=== PATIENT | female | born 2005 | race Caucasian/White ===

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

== ENCOUNTER → 2023-11-30 | Outpatient (CLI) | payer OTHER ==
[~2023-11-30] MED LIST: CARA1TAB6 PO; DICY-61 PO; OMEP-173 PO; OMEP1CAP73 PO; ONDA-282 PO
== END ==
LOC: M RAD 11:11
PROVIDERS: ATTEND Physician Assistant Medical
DX: M25.475 Effusion, left foot (principal); R93.6 Abnormal findings on diagnostic imaging of limbs

== ENCOUNTER → 2023-12-26 | Outpatient (CLI) | payer OTHER ==
[~2023-12-26] MED LIST changes: +PROHANCE 279.3MG/ML 15ML VIAL ONE
== END ==
LOC: M PLAIMG 12:48
PROVIDERS: ATTEND Physician Assistant Medical
DX: M67.472 Ganglion, left ankle and foot (principal)

== ENCOUNTER 2024-01-25 08:30 | Day surgery (SDC) | payer OTHER ==
[~2024-01-25] VITALS: Ht 154.9 cm; Wt 58.2 kg
[~2024-01-25 08:30] MED LIST changes: +FERR325T3 PO; -PROHANCE 279.3MG/ML 15ML VIAL ONE
[2024-01-25] MEDS ORDERED: LIDOCAINE 1% SDV 5ML VIAL SC PRN (08:40)
[2024-01-25] MEDS: NS 1,000 ML IV SCH (08:40)
[2024-01-25] MEDS ORDERED: LIDOCAINE 2% 100MG/5ML SDV (FOR ANES.) As Ordered ONE (09:05)
[2024-01-25] MEDS ORDERED: propofoL 200 MG/20 ML VIAL As Ordered ONE (09:05)
[2024-01-25] MEDS ORDERED: ONDANSETRON 4MG 2ML VIAL As Ordered ONE (09:06)
[2024-01-25] MEDS ORDERED: MIDAZOLAM INJ 2MG/2ML VIAL As Ordered ONE (09:07)
[2024-01-25] MEDS ORDERED: ACETAMINOPHEN 1000MG 100ML IV BAG As Ordered ONE (09:08)
[2024-01-25] MEDS ORDERED: fentaNYL 100 MCG/2 ML INJECTION As Ordered ONE (09:08)
[2024-01-25] MEDS ORDERED: KETOROLAC 60MG 2ML VIAL As Ordered ONE (09:55)
[2024-01-25] MEDS: ceFAZolin 2 GM/D5W 50 ML IV BAG As Ordered ONE (10:05)
[2024-01-25] MEDS: BACITRACIN OINTMENT 30GM TUBE As Ordered ONE (10:30)
[2024-01-25] MEDS ORDERED: ONDANSETRON 4MG 2ML VIAL IV PRN (10:55)
[2024-01-25] MEDS ORDERED: oxyCODONE 5MG TAB PO PRN (10:55)
[2024-01-25] MEDS ORDERED: HYDROMORPHONE HCL 0.5 MG/ 0.5 ML SYRINGE IV PRN (10:55)
[2024-01-25] MEDS ORDERED: NS 1,000 ML IV SCH (10:55)
[2024-01-25] MEDS ORDERED: fentaNYL 100 MCG/2 ML INJECTION IV PRN (10:55)
[2024-01-25 11:55] VITALS: BP 117/71; TEMP 97.7; O2SAT 98
== END 2024-01-25 11:57 | disposition home or self-care (01) ==
LOC: M SDC 08:30
PROVIDERS: ATTEND Orthopaedic Surgery Hand Surgery
DX: M67.472 Ganglion, left ankle and foot (principal)
CPT/HCPCS: 28039; 81025; 88305; J0131; J0665; J0690; J1100; J1885; J2250; J2405; J3010

== ENCOUNTER → 2024-05-23 | Outpatient (CLI) | payer OTHER ==
[2024-05-23 19:26] LABS: LIPASE 45 U/L (12-53)
[2024-05-23 19:27] LABS: BASO % 0.4 % (0.0-1.0); EOS # 0.1 10^3/uL (0.0-0.5); EOS % 1.2 % (0.0-3.0); HEMATOCRIT 41.8 % (36.0-47.0); HEMOGLOBIN 13.5 g/dl (12.0-15.5); IRON (FE) 41 UG/DL (50-170); LYMPH # 2.1 10^3/uL (1.5-5.0); LYMPH % 30.2 % (24.0-44.0); MEAN CORPUSCULAR HEMOGLOBIN 28.3 pg (27.0-33.0); MEAN CORPUSCULAR HGB CONC 32.3 g/dl (32.0-36.5); MEAN CORPUSCULAR VOLUME 87.6 fl (80.0-96.0); MONO # 0.6 10^3/uL (0.0-0.8); MONO % 8.7 % (2.0-8.0); NEUTROPHILS % 59.2 % (36.0-66.0); PLATELET COUNT, AUTOMATED 343 10^3/uL (150-450); RED BLOOD COUNT 4.77 10^6/uL (4.00-5.40); WHITE BLOOD COUNT 6.8 10^3/uL (4.0-10.0)
[2024-05-23 19:28] LABS: C REACTIVE PROTEIN QUANTITATIV < 0.50 MG/DL (<1.0); PERCENT SATURATION 11.5 % (13.2-45.0); TOTAL IRON BINDING CAPACITY 356 UG/DL (250-425)
[2024-05-23 19:29] LABS: ALKALINE PHOSPHATASE 80 U/L (35-104); ALT/SGPT 18 U/L (7.0-40); AST/SGOT 9 U/L (<34); BILIRUBIN,TOTAL 0.3 MG/DL (0.3-1.2); BLOOD UREA NITROGEN 9 MG/DL (9-23); CALCIUM LEVEL 9.2 MG/DL (8.5-10.1); CARBON DIOXIDE LEVEL 26 MMOL/L (20-31); CHLORIDE LEVEL 108 MMOL/L (98-107); CREATININE FOR GFR 0.64 MG/DL (0.55-1.30); FREE T4 1.08 NG/DL (0.83-1.43); GLUCOSE, FASTING 70 MG/DL (60-100); POTASSIUM SERUM 4.1 MMOL/L (3.5-5.1); SODIUM LEVEL 144 MMOL/L (136-145); TOTAL PROTEIN 7.5 G/DL (5.7-8.2)
[2024-05-23 19:30] LABS: FERRITIN 10.4 NG/ML (7.3-270.7); THYROID STIMULATING HORMONE 1.102 uIU/ML (0.48-4.17)
== END ==
LOC: M PLALAB 15:34
DX: K59.00 Constipation, unspecified (principal); D50.9 Iron deficiency anemia, unspecified